=== PATIENT | male | born 2005 | race Native Hawaiian/Other Pacific Islander ===

== ENCOUNTER 2025-03-29 15:06 | Emergency (ER) | payer OTHER ==
[~2025-03-29] VITALS: Ht 177.8 cm; Wt 72.7 kg
[~2025-03-29 15:06] MED LIST: NOCURR
[2025-03-29 15:14] VITALS: BP 108/74; PULSE 102; RESP 18; TEMP 100; O2SAT 99
[2025-03-29 15:37] LABS: COVID AG,FIA SOURCE NASAL SWAB
[2025-03-29 16:12] LABS: INFLUENZA TYPE A NEGATIVE FOR TYPE A (NEGATIVE); INFLUENZA TYPE B NEGATIVE FOR TYPE B (NEGATIVE)
[2025-03-29 16:24] LABS: SARS-COV2 (COVID) ANTIGEN,FIA Positive (Negative)
== END 2025-03-29 22:15 | disposition left against medical advice (07) ==
LOC: EMS 15:06
DX: U07.1 COVID-19 (principal); R11.10 Vomiting, unspecified; Z53.21 Procedure and treatment not carried out due to patient leaving prior to being seen by health care provider
CPT/HCPCS: 87804